=== PATIENT | female | born 1990 | race Caucasian/White ===

== ENCOUNTER 2017-02-08 13:43 | Outpatient (CLI) | payer MEDICAID ==
[~2017-02-08] VITALS: Ht 149.9 cm; Wt 64.1 kg
[2017-02-08 14:12] VITALS: Ht 149.9 cm; Wt 64.1 kg
[2017-02-08 14:13] VITALS: BP 111/76; PULSE 95; RESP 18
[2017-02-08] MEDS ORDERED: PRENAT PO (14:15)
[2017-02-08] MEDS ORDERED: TERBUTALINE 1 MG/ML INJ SC ONE ×2 (14:30→15:30)
[2017-02-08] MEDS ORDERED: LACTATED RINGER'S 1,000 ML IV SCH (14:30)
[2017-02-08 14:57] LABS: ADD UMIC YES; UR ASCORBIC ACID NEGATIVE (NEGATIVE); UR BACTERIA FEW /HPF (NONE SEEN); UR BILIRUBIN (Dip) NEGATIVE (NEGATIVE); UR BLOOD (Dip) NEGATIVE (NEGATIVE); UR CLARITY SLIGHTLY CLOUDY (CLEAR); UR COLOR YELLOW (YELLOW); UR GLUCOSE (Dip) NEGATIVE (NEGATIVE); UR KETONES (Dip) NEGATIVE (NEGATIVE); UR LEUKOCYTE ESTERASE (Dip) 1+ Leu/ul (NEGATIVE); UR MUCUS FEW /HPF (NONE SEEN); UR NITRITE (Dip) NEGATIVE (NEGATIVE); UR RBC 0 /HPF (0-5); UR SPECIFIC GRAVITY (Dip) 1.016 (1.003-1.030); UR SQUAMOUS EPITHELIAL CELL FEW /HPF (FEW); UR TOTAL PROTEIN (Dip) NEGATIVE (NEGATIVE); UR UROBILINOGEN (Dip) NEGATIVE (NEGATIVE)
--- NOTE | 2017-02-08 15:01 | RADRPT ---
PROCEDURE: US OB biophysical profile. CLINICAL INDICATION: decreased movements, prom TECHNIQUE: Multiple sonographic images of the pelvis were obtained. The images were reviewed on a PACS workstation. COMPARISON: No prior studies are available for comparison. FINDINGS: There is a single viable intrauterine gestation. Cardiac activity is present with 156 beats per min [place]. There is a vertex presentation. The placenta is posterior. There is no evidence of placental abruption. There is a normal amount of amniotic fluid with an MADI = 18.1 cm. Biophysical profile: movement 2/2 tone 2/2. breathing 2/2 MADI 2/2 Total 12/28 RPTAT: AA . IMPRESSION: Normal biophysical profile. . .James Byrd MD, MD Date Time Electronically viewed and signed by .James Byrd MD, MD on 02/08/2017 15:01 .S/
--- NOTE | 2017-02-08 16:40 | RADRPT ---
PROCEDURE: Limited obstetric ultrasound CLINICAL INDICATION: Pain , labor TECHNIQUE: Multiple transverse and longitudinal grayscale images of the pelvis were obtained quiroz sabdominally and transvaginally.. COMPARISON: 02/08/2017 FINDINGS: The cervix is closed with a length of 4.3 cm. There is a single viable intrauterine gestation. Cardiac activity is present with 165 beats per min [place]. There is a vertex presentation. The placenta is posterior. There is no evidence for an abruption or placenta previa. RPTAT: AA IMPRESSION: Cervix length measures 4.3 cm. .James Byrd MD, MD Date Time Electronically viewed and signed by .James Byrd MD, on 02/08/2017 16:40 .S/
--- NOTE | 2017-02-08 16:45 | PN ---
Triage Information Date/Time Reason for visit: Uterine contractions Weeks of Gestation 29+ /Para 1/0 Diabetes: none Hypertention: none Objective Vital Signs Date Time Temp Pulse Resp B/P Pulse Ox O2 Delivery O2 Flow Rate FiO2 02/08/17 14:13 98.1 95 18 111/76 Heart Rate: 140's Contractions: None Results/Medications Results 24 hrs Laboratory Tests Test 02/08/17 14:05 02/08/17 14:20 Urine Color YELLOW Urine Clarity SLIGHTLY CLOUDY A Urine pH 7.0 Urine Specific [place] 1.016 Urine Ketones NEGATIVE Urine Nitrite NEGATIVE Urine Bilirubin NEGATIVE Urine Urobilinogen NEGATIVE Urine Leukocyte Esterase 1+ H Urine Microscopic RBC 0 Urine Microscopic WBC 1 Urine Squamous Epithelial Cells FEW Urine Bacteria FEW A Urine Mucus FEW A Urine Hemoglobin NEGATIVE Urine Glucose NEGATIVE Urine Total Protein NEGATIVE Membranes Rupture NEGATIVE Medications Current Medications Lactated Ringer's (Lr) 1,000 ml @ 125 mls/hr Q8H IV Last administered on t 14:34; Admin Dose 125 MLS/HR; Start 02/08/17 at 14:30 Disposition: Discharge Assessment/Plan CXL WNLBPP 12/28 ROM +-->MARCELLUS Jaramillo M.D. Feb 08, 2017 16:45
== END 2017-02-08 16:45 | disposition home or self-care (01) ==
LOC: L-D 13:43 → OBT 13:43
PROVIDERS: ATTEND Obstetrics & Gynecology
DX: O47.03 False labor before 37 completed weeks of gestation, third trimester (principal); Z3A.29 29 weeks gestation of pregnancy
CPT/HCPCS: 36415; 76817; 76818; 81001; 84112; 96360; 96361; G0463; J3105; J7120

== ENCOUNTER 2017-03-03 18:30 | Outpatient (CLI) | payer MEDICAID ==
[~2017-03-03] VITALS: Ht 149.9 cm; Wt 66.1 kg
[~2017-03-03 18:30] MED LIST: PRENAT PO
[2017-03-03 18:35] VITALS: Ht 149.9 cm; Wt 66.1 kg
[2017-03-03 18:36] VITALS: BP 114/75; PULSE 89; RESP 20
[2017-03-03 19:45] LABS: ADD UMIC YES; UR ASCORBIC ACID NEGATIVE (NEGATIVE); UR BACTERIA FEW /HPF (NONE SEEN); UR BILIRUBIN (Dip) NEGATIVE (NEGATIVE); UR BLOOD (Dip) NEGATIVE (NEGATIVE); UR CLARITY SLIGHTLY CLOUDY (CLEAR); UR COLOR YELLOW (YELLOW); UR GLUCOSE (Dip) NEGATIVE (NEGATIVE); UR KETONES (Dip) NEGATIVE (NEGATIVE); UR LEUKOCYTE ESTERASE (Dip) 2+ Leu/ul (NEGATIVE); UR NITRITE (Dip) NEGATIVE (NEGATIVE); UR RBC 1 /HPF (0-5); UR SPECIFIC GRAVITY (Dip) 1.012 (1.003-1.030); UR SQUAMOUS EPITHELIAL CELL MANY /HPF (FEW); UR TOTAL PROTEIN (Dip) NEGATIVE (NEGATIVE); UR UROBILINOGEN (Dip) NEGATIVE (NEGATIVE)
[2017-03-03 20:08] LABS: BASOPHIL # 0.1 10^3/ul (0.0-0.1); BASOPHILS % 0.4 % (0.0-2.0); EOSINOPHILS # 0.1 10^3/ul (0.0-0.5); EOSINOPHILS % 0.5 % (0.0-7.0); HEMATOCRIT 36.8 % (37.0-47.0); HEMOGLOBIN 12.7 g/dl (12.0-16.0); LYMPHOCYTES # 2.4 10^3/ul (0.8-2.9); LYMPHOCYTES % 18.1 % (15.0-51.0); MEAN CORPUSCULAR HEMOGLOBIN 31.5 pg (29.0-33.0); MEAN CORPUSCULAR HGB CONC 34.5 g/dl (32.0-37.0); MEAN CORPUSCULAR VOLUME 91.3 fl (82.0-101.0); MONOCYTE # 1.2 10^3/ul (0.3-0.9); MONOCYTES % 8.7 % (0.0-11.0); NEUTROPHIL # 9.4 10^3/ul (1.6-7.5); NEUTROPHILS % 71.1 % (39.0-77.0); PLATELET COUNT 185 10^3/UL (140-415); RED BLOOD COUNT 4.03 10^6/ul (4.20-5.40); RED CELL DISTRIBUTION WIDTH 13.3 % (11.5-14.5); WHITE BLOOD COUNT 13.3 10^3/ul (4.8-10.8)
--- NOTE | 2017-03-03 20:18 | RADRPT ---
PROCEDURE: US OB. CLINICAL INDICATION: Abdominal pain. TECHNIQUE: Multiple sonographic images of the uterus were obtained. The images were revi ewed on a PACS workstation. COMPARISON: No prior studies are available for comparison. FINDINGS: There is a single live intrauterine gestation. heart rate is 139 beats per minute. Measurements were made in order to determine age. The results are as follows: BPD = 8.12 cm. HC = 29.87 cm. AC = 29.17 cm. FL = 6.36 cm. Estimated weight is 2102 +/- 315 grams. LMP growth percentile is 46 %. Menstrual age by ultrasound dates is 33 weeks 0 days. The estimated date of delivery is 04/21/2017. Position is cephalic and placenta is posterior grade 1. There is no evidence for an abruption or [place] previa. IMPRESSION: 1. Single live intrauterine gestation of 33 weeks 0 days menstrual age by ultrasound dates. 2. The estimated date of delivery is 04/21/2017. RPTAT: QQ .Jose Rafael Ash MD, Date Time Electronically viewed and signed by .Jose Rafael Ash MD, on 03/03/2017 20:17 .R/
--- NOTE | 2017-03-03 20:19 | RADRPT ---
PROCEDURE: US biophysical profile and cervical length ultrasound. CLINICAL INDICATION: Decreased motion. TECHNIQUE: Multiple sonographic images of the uterus were obtained. Transvaginal sonogra phy of the cervix was also performed. The images were reviewed on a PACS workstation. COMPARISON: 02/08/2017. FINDINGS: There is a single live intrauterine gestation. heart rate is 136 beats per minute. The position is cephalic. The placenta is posterior grade 1 with no abruption or previa. The MADI is 14.8 cm. (Normal = 5-20 cm.) Cervical length is 3.8 cm Breathing Movement: 2 Gross Body Movement: 2 Tone: 2 Qualitative Amniotic Fluid Volume: 2 TOTAL: 8 IMPRESSION: 1. The biophysical score is 8/8. 2. Cervical length is 3.8 cm. RPTAT: QQ .Jose Rafael Ash MD, Date Time Electronically viewed and signed by .Jose Rafael Ash MD, on 03/03/2017 20:18 .R/
[2017-03-03] MEDS ORDERED: LACTATED RINGER'S 500 ML IV ONE (21:00)
[2017-03-03] MEDS ORDERED: LACTATED RINGER'S 1,000 ML IV SCH (21:00)
--- NOTE | 2017-03-04 00:10 | PN ---
Triage Information Date/Time 03/04/17 Reason for visit: Uterine contractions Weeks of Gestation 32w6d /Para primigravida Diabetes: none Hypertention: none Objective Vital Signs Date Time Temp Pulse Resp B/P Pulse Ox O2 Delivery O2 Flow Rate FiO2 03/03/17 18:36 98.1 89 20 114/75 Room Air Intake and Output 03/03/17 03/03/17 03/04/17 15:00 23:00 07:00 Intake Total 1000 ml Balance 1000 ml Heart Rate: 140's Contractions: >10 Minutes Apart Results/Medications Result Diagram: 03/03/172004 Results 24 hrs Laboratory Tests Test 03/03/17 18:40 03/03/17 20:05 Urine Color YELLOW Urine Clarity SLIGHTLY CLOUDY A Urine pH 7.0 Urine Specific [place] 1.012 Urine Ketones NEGATIVE Urine Nitrite NEGATIVE Urine Bilirubin NEGATIVE Urine Urobilinogen NEGATIVE Urine Leukocyte Esterase 2+ H Urine Microscopic RBC 1 Urine Microscopic WBC 5 Urine Squamous Epithelial Cells MANY A Urine Bacteria FEW A Urine Hemoglobin NEGATIVE Urine Glucose NEGATIVE Urine Total Protein NEGATIVE White Blood Count 13.3 H Red Blood Count 4.03 L Hemoglobin 12.7 Hematocrit 36.8 L Mean Corpuscular Volume 91.3 Mean Corpuscular Hemoglobin 31.5 Mean Corpuscular Hemoglobin Concent 34.5 Red Cell Distribution Width 13.3 Platelet Count 185 Mean Platelet Volume 12.0 H Neutrophils % 71.1 Lymphocytes % 18.1 Monocytes % 8.7 Eosinophils % 0.5 Basophils % 0.4 Nucleated Red Blood Cells % 0.0 Neutrophils # 9.4 H Lymphocytes # 2.4 Monocytes # 1.2 H Eosinophils # 0.1 Basophils # 0.1 Nucleated Red Blood Cells # 0.0 Medications IV hydration Imaging Results BPP8/8 MADI 14.8 CVL 3.8 no FNN since CVL >3 EFW 2102 Disposition: Discharge Assessment/Plan IUP 32w6d R/O PTL resolved after iv hydration BROOKE MARTINEZ MD Mar 04, 2017 00:09
== END 2017-03-03 23:35 | disposition home or self-care (01) ==
LOC: OBT 18:30 → L-D 18:31 → OBT 23:35
PROVIDERS: ATTEND Obstetrics & Gynecology
DX: O62.9 Abnormality of forces of labor, unspecified (principal); Z3A.32 32 weeks gestation of pregnancy
CPT/HCPCS: 36415; 76815; 76817; 76818; 81001; 85025; 87086; 96360; J7120; Z7500; G0463

== ENCOUNTER 2017-03-08 12:27 | Outpatient (CLI) | payer MEDICAID ==
[~2017-03-08] VITALS: Ht 149.9 cm; Wt 66.3 kg
[2017-03-08 13:06] VITALS: BP 108/65; PULSE 92; RESP 18; Ht 149.9 cm; Wt 66.3 kg
[2017-03-08] MEDS ORDERED: LACTATED RINGER'S 1,000 ML IV* SCH (14:00)
[2017-03-08] MEDS ORDERED: TERBUTALINE 1 MG/ML INJ SC ONE (14:00)
[2017-03-08] MEDS ORDERED: TERBUTALINE 1 MG/ML INJ SC PRN (14:30)
--- NOTE | 2017-03-08 14:39 | RADRPT ---
PROCEDURE: US OB biophysical profile. CLINICAL INDICATION: decreased movements, contractions TECHNIQUE: Multiple sonographic images of the pelvis were obtained. The images were reviewed on a PACS workstation. COMPARISON: US PELVIS 03/03/2017 FINDINGS: There is a single viable intrauterine gestation. Cardiac activity is present with 148 beats per min [place]. There is a vertex presentation. The placenta is posterior. There is no evidence of placental abruption. There is a normal amount of amniotic fluid with an MADI = 14.1 cm. Biophysical profile: movement 2/2 tone 2/2. breathing 2/2 MADI 2/2 Total 12/28 RPTAT: AA . IMPRESSION: Normal biophysical profile. . .James Byrd MD, MD Date Time Electronically viewed and signed by .James Byrd MD, MD on 03/08/2017 14:38 .S/
--- NOTE | 2017-03-08 14:39 | RADRPT ---
PROCEDURE: Limited obstetric ultrasound CLINICAL INDICATION: Pain TECHNIQUE: Multiple transverse and longitudinal grayscale images of the pelvis were obtained quiroz sabdominally and transvaginally.. COMPARISON: same day FINDINGS: The cervix is closed with a length of 3.2 cm. There is a single viable intrauterine gestation. Cardiac activity is present with 142 beats per min [place]. There is a vertex presentation. The placenta is posterior. There is no evidence for an abruption or placenta previa. RPTAT: AA IMPRESSION: Cervix length measures 3.2 cm. .James Byrd MD, MD Date Time Electronically viewed and signed by .James Byrd MD, on 03/08/2017 14:39 .S/
[2017-03-08 16:48] LABS: ADD UMIC NO; UR ASCORBIC ACID NEGATIVE (NEGATIVE); UR BILIRUBIN (Dip) NEGATIVE (NEGATIVE); UR BLOOD (Dip) NEGATIVE (NEGATIVE); UR CLARITY CLEAR (CLEAR); UR COLOR YELLOW (YELLOW); UR GLUCOSE (Dip) NEGATIVE (NEGATIVE); UR KETONES (Dip) NEGATIVE (NEGATIVE); UR LEUKOCYTE ESTERASE (Dip) NEGATIVE Leu/ul (NEGATIVE); UR NITRITE (Dip) NEGATIVE (NEGATIVE); UR SPECIFIC GRAVITY (Dip) 1.009 (1.003-1.030); UR TOTAL PROTEIN (Dip) NEGATIVE (NEGATIVE); UR UROBILINOGEN (Dip) NEGATIVE (NEGATIVE)
[2017-03-08] MEDS ORDERED: BETAMET NA PHOS/AC(6 MG/ML) 5ML INJ IM STA (17:03)
--- NOTE | 2017-03-08 17:40 | PN ---
Triage Information Date/Time Reason for visit: Uterine contractions Weeks of Gestation 33+ /Para ... Diabetes: none Hypertention: none Objective Vital Signs Date Time Temp Pulse Resp B/P Pulse Ox O2 Delivery O2 Flow Rate FiO2 03/08/17 13:06 98.3 92 18 108/65 Room Air Heart Rate: 140's Contractions: None Results/Medications Results 24 hrs Laboratory Tests Test 03/08/17 12:25 03/08/17 14:01 Urine Color YELLOW Urine Clarity CLEAR Urine pH 7.0 Urine Specific [place] 1.009 Urine Ketones NEGATIVE Urine Nitrite NEGATIVE Urine Bilirubin NEGATIVE Urine Urobilinogen NEGATIVE Urine Leukocyte Esterase NEGATIVE Urine Hemoglobin NEGATIVE Urine Glucose NEGATIVE Urine Total Protein NEGATIVE Fibronectin NEGATIVE Medications Current Medications Lactated Ringer's (Lr) 1,000 ml @ 0 mls/hr Q0M IV* Last administered on 14:54; Admin Dose 1,200 MLS/HR; Start 03/08/17 at 14:00 Terbutaline Sulfate (Brethine) 0.25 mg ONCE PRN SC CONTINUED CONTRACTIONS Last administered on 03/08/17 17:15; Admin Dose 0.25 MG; Start 03/08/17 at 14:30; Stop 03/10/17 at 14:29 Betamethasone Acet/Betameth SodPhos ([place] Soluspan) 12 mg ONCE ONCE IM ; Start 03/09/17 at 17:00; Stop 03/09/17 at 17:01 Disposition: Discharge Assessment/Plan Irritability Norm CXL Neg FFN NST reassuring --->can be discharged after receiving steroid --->return tomorrow for second dose MARCELLUS RUIZ M.D. Mar 08, 2017 17:40
--- NOTE | 2017-03-08 19:25 | TRIAGE ---
OB Triage Datetime Report Generated by CPN: 03/08/2017 19:25 Datetime: 03/08/2017 18:43 Labor Evaluation Frequency: 0 Monitor Mode: External Pattern: Normal: <= 5 Contractions in 10 Minutes Resting Tone [place]: Relaxed Heart Rate FHR Baseline Rate: 145 Monitor Mode: External US FHR Baseline Changes: No Baseline Change Variability: Moderate 6-25 bpm Accelerations: 15X15 Decelerations: None Datetime: 03/08/2017 18:00 Maternal Assessment Level of Consciousness: Fully Conscious Headache: Denies Blurred Vision: No Nausea/Vomiting: Denies RUQ Epigastric Pain: Denies Facial Edema: None Labor Evaluation Frequency: x1 Monitor Mode: External Duration (sec)2399: 60 Quality: Mild Pattern: Normal: <= 5 Contractions in 10 Minutes Resting Tone [place]: Relaxed Heart Rate FHR Baseline Rate: 145 Monitor Mode: External US FHR Baseline Changes: No Baseline Change Variability: Moderate 6-25 bpm Accelerations: 15X15 Decelerations: None Pain Assessment Pain Scale: 0 Pain Presence: None/Denies Pain Type: N/A Datetime: 03/08/2017 17:00 Maternal Assessment Level of Consciousness: Fully Conscious Headache: Denies Blurred Vision: No Nausea/Vomiting: Denies RUQ Epigastric Pain: Denies Facial Edema: None Labor Evaluation Frequency: x2 Monitor Mode: External Duration (sec)2399: 60-70 Quality: Mild Pattern: Normal: <= 5 Contractions in 10 Minutes Resting Tone [place]: Relaxed Heart Rate FHR Baseline Rate: 145 Monitor Mode: External US FHR Baseline Changes: No Baseline Change Variability: Moderate 6-25 bpm Accelerations: 15X15 Decelerations: None Pain Assessment Pain Scale: 0 Pain Presence: None/Denies Pain Type: N/A Datetime: 03/08/2017 16:47 Contraction Comments: PT REPORTS THAT SHE HASN'T FELT ANY CONTRACTIONS SINCE PRIOR TO THE TERBUTAL INE SHOT Pain Assessment Pain Scale: 0 Pain Presence: None/Denies Pain Type: N/A Datetime: 03/08/2017 16:00 Labor Evaluation Frequency: 10-15 Monitor Mode: External Duration (sec)2399: 50-60 Quality: Mild Pattern: Normal: <= 5 Contractions in 10 Minutes Resting Tone [place]: Relaxed Heart Rate FHR Baseline Rate: 145 Monitor Mode: External US FHR Baseline Changes: No Baseline Change Variability: Moderate 6-25 bpm Accelerations: 15X15 Decelerations: None Pain Assessment Pain Scale: 2 Pain Presence: Intermittent Pain Type: Contraction Pain Location: Abdomen; Back; Perineum Datetime: 03/08/2017 15:13 Vaginal Exam Dilatation (cms): 0.0 Effacement (%): 0 Station: -4 Exam By: CKUNIYOSHI Vaginal Bleeding: None Cervix, Consistency: Firm Cervix, Position: Posterior Presentation 'A': Unable to Assess Datetime: 03/08/2017 15:00 Labor Evaluation Frequency: 3-10 Monitor Mode: External Duration (sec)2399: 50-90 Quality: Mild Pattern: Normal: <= 5 Contractions in 10 Minutes Resting Tone [place]: Relaxed Heart Rate FHR Baseline Rate: 140 Monitor Mode: External US FHR Baseline Changes: No Baseline Change Variability: Moderate 6-25 bpm Accelerations: 15X15 Decelerations: None Datetime: 03/08/2017 14:00 Maternal Assessment Level of Consciousness: Fully Conscious Headache: Denies Blurred Vision: No Nausea/Vomiting: Denies RUQ Epigastric Pain: Denies Facial Edema: None Labor Evaluation Frequency: 3-20 Monitor Mode: External Quality: Mild Pattern: Normal: <= 5 Contractions in 10 Minutes Resting Tone [place]: Relaxed Heart Rate FHR Baseline Rate: 140 Monitor Mode: External US FHR Baseline Changes: No Baseline Change Variability: Moderate 6-25 bpm Accelerations: 15X15 Decelerations: None Pain Assessment Pain Scale: 4 Pain Presence: Intermittent Pain Type: Contraction Pain Location: Abdomen; Back; Perineum Datetime: 03/08/2017 13:11 Assessment Type: Admission Assessment Maternal Assessment Level of Consciousness: Fully Conscious DTR's/Clonus: DTRs 2+; No Clonus Headache: Denies Blurred Vision: No Respiratory Effort: Unlabored; Regular Rhythm; Equal Expansion Breath Sounds, Left: Clear and Equal Breath Sounds, Right: Clear and Equal Nausea/Vomiting: Denies RUQ Epigastric Pain: Denies Lower Extremities Edema: None Degree: None Upper Extremities Edema: None Degree: None Facial Edema: None Fall Risk Assessment History of Falling: (0) No Secondary Diagnosis: (0) No Ambulatory Aid: (0) Bedrest/Nurse Assist IV Therapy: (0) No Gait: (0) Normal/Bedrest/Immobile Mental Status: (0) Oriented to Own Ability Fall Score: 0 Fall Risk Score Definition: No Risk: No action required Datetime: 03/08/2017 13:10 Time of Arrival: 03/08/2017 12:22 EGA: 33.4 Arrived By: Ambulatory Arrived From: Dr. Benítez Chief Complaint: Uc's since 03/07 2000 Movement: Present Contractions: Occasional Time Contractions Began: 03/07/2017 20:00 Rupture of Membranes: Denies Vaginal Bleeding: None Vaginal Discharge: Denies Recent Sexual Intercouse: Denies Abdominal Trauma: Not Applicable Patient Complaints: Contractions; Cramping Time Provider Notified: 03/08/2017 13:47 Provider Notified: DR. SORTO Initial Plan: NST Datetime: 03/03/2017 23:00 Labor Evaluation Frequency: 13 Monitor Mode: External Duration (sec)2399: 60 Pattern: Normal: <= 5 Contractions in 10 Minutes Contraction Comments: IRREGULAR Heart Rate FHR Baseline Rate: 135 Monitor Mode: External US FHR Baseline Changes: No Baseline Change Variability: Moderate 6-25 bpm Accelerations: 15X15 Datetime: 03/03/2017 22:31 Stage of : OB Triage Datetime: 03/03/2017 22:30 Labor Evaluation Frequency: NONE Monitor Mode: External Duration (sec)2399: NONE Pattern: Normal: <= 5 Contractions in 10 Minutes Contraction Comments: PT. DENIES FEELING UC'S Heart Rate FHR Baseline Rate: 135 Monitor Mode: External US FHR Baseline Changes: No Baseline Change Variability: Moderate 6-25 bpm Accelerations: 15X15 Datetime: 03/03/2017 22:00 Labor Evaluation Frequency: 2-6 Monitor Mode: External Pattern: Normal: <= 5 Contractions in 10 Minutes Contraction Comments: OCCASSIONAL IRREGULAR UC'S Heart Rate FHR Baseline Rate: 135 Monitor Mode: External US FHR Baseline Changes: No Baseline Change Variability: Moderate 6-25 bpm Accelerations: 15X15 Datetime: 03/03/2017 20:37 Stage of : OB Triage Datetime: 03/03/2017 20:31 Stage of : OB Triage Labor Evaluation Frequency: 3-5 Monitor Mode: External Duration (sec)2399: 50-70 Pattern: Normal: <= 5 Contractions in 10 Minutes Resting Tone [place]: Relaxed Heart Rate FHR Baseline Rate: 130 Monitor Mode: External US Variability: Moderate 6-25 bpm Accelerations: 15X15 Decelerations: None Category: Category I Pain Assessment Pain Scale: 3 Pain Presence: Intermittent Pain Type: Sharp Pain Location: Abdomen; Perineum Pain Relief Measures: Comfort Measures Datetime: 03/03/2017 19:25 Stage of : OB Triage Labor Evaluation Frequency: Occasional Monitor Mode: External Duration (sec)2399: 50-60 Pattern: Normal: <= 5 Contractions in 10 Minutes Resting Tone [place]: Relaxed Heart Rate FHR Baseline Rate: 135 Monitor Mode: External US Variability: Moderate 6-25 bpm Accelerations: 15X15 Decelerations: None Category: Category I Pain Assessment Pain Scale: 3 Pain Presence: Intermittent Pain Type: Sharp Pain Location: Abdomen; Perineum Pain Relief Measures: Comfort Measures Datetime: 03/03/2017 18:40 Stage of : OB Triage Assessment Type: Triage Maternal Assessment Level of Consciousness: Fully Conscious DTR's/Clonus: DTRs 2+; No Clonus Headache: Denies Blurred Vision: No Respiratory Effort: Unlabored; Regular Rhythm; Equal Expansion Nausea/Vomiting: Denies RUQ Epigastric Pain: Denies Lower Extremities Edema: None Degree: None Upper Extremities Edema: None Degree: None Facial Edema: None Temperature Route: Axillary Fall Risk Assessment History of Falling: (0) No Secondary Diagnosis: (0) No Ambulatory Aid: (0) Bedrest/Nurse Assist IV Therapy: (0) No Gait: (0) Normal/Bedrest/Immobile Mental Status: (0) Oriented to Own Ability Fall Score: 0 Fall Risk Score Definition: No Risk: No action required Datetime: 03/03/2017 18:38 Monitor Mode: External Monitor Mode: External US Pain Assessment Pain Scale: 3 Pain Presence: Intermittent Pain Type: Sharp Pain Location: Abdomen; Perineum Pain Goal: 0 Datetime: 02/08/2017 16:55 Time of Arrival: 03/03/2017 18:24 EGA: 32.6 Arrived By: Ambulatory Arrived From: Home Chief Complaint: SHARP PAIN AT LOWER ABDOMEN DOWN TO URETHRA SINCE 1320 TODAY. ALSO C/O DIZZYNESS AND LIGHT HEADED FOR A WEEK. Movement: Present Contractions: Occasional Time Contractions Began: 03/03/2017 13:20 Rupture of Membranes: Denies Vaginal Bleeding: None Vaginal Discharge: Denies Recent Sexual Intercouse: Denies Abdominal Trauma: Not Applicable Patient Complaints: Other Time Provider Notified: 03/03/2017 19:30 Provider Notified: MICHELLE Initial Plan: EFM, UA Datetime: 02/08/2017 16:34 Stage of : OB Triage Datetime: 02/08/2017 16:30 Labor Evaluation Frequency: 0 Monitor Mode: External Resting Tone [place]: Relaxed Heart Rate FHR Baseline Rate: 155 Monitor Mode: External US Variability: Moderate 6-25 bpm Accelerations: 10X10 Decelerations: None Category: Category I Pain Assessment Pain Scale: 0 Pain Presence: None/Denies Pain Type: N/A Pain Goal: 3 Pain Relief Measures: Comfort Measures Datetime: 02/08/2017 15:06 Labor Evaluation Frequency: 0 Monitor Mode: External Pattern: Normal: <= 5 Contractions in 10 Minutes Resting Tone [place]: Relaxed Heart Rate FHR Baseline Rate: 145 Monitor Mode: External US Variability: Moderate 6-25 bpm Accelerations: 10X10 Decelerations: None Category: Category I Pain Assessment Pain Scale: 0 Pain Presence: None/Denies Pain Type: N/A Pain Goal: 3 Pain Relief Measures: Comfort Measures Datetime: 02/08/2017 14:19 Stage of : OB Triage Datetime: 02/08/2017 14:03 Stage of : OB Triage Assessment Type: Triage EGA: 29.4 Maternal Assessment Level of Consciousness: Fully Conscious DTR's/Clonus: DTRs 2+; No Clonus Headache: Denies Blurred Vision: No Respiratory Effort: Unlabored; Regular Rhythm; Equal Expansion Breath Sounds, Left: Clear and Equal Breath Sounds, Right: Clear and Equal Nausea/Vomiting: Denies RUQ Epigastric Pain: Denies Facial Edema: None Temperature Route: Axillary Fall Risk Assessment History of Falling: (0) No Secondary Diagnosis: (0) No Ambulatory Aid: (0) Bedrest/Nurse Assist IV Therapy: (0) No Gait: (0) Normal/Bedrest/Immobile Mental Status: (0) Oriented to Own Ability Fall Score: 0 Fall Risk Score Definition: No Risk: No action required Labor Evaluation Frequency: 1-3 Monitor Mode: External Duration (sec)2399: 30 Quality: Mild (Annotations: DENIES FEELING) Resting Tone [place]: Relaxed Heart Rate FHR Baseline Rate: 140 Monitor Mode: External US Variability: Moderate 6-25 bpm Decelerations: None Pain Assessment Pain Scale: 4 Pain Presence: Intermittent Pain Type: Cramping Pain Location: Back Pain Goal: 3 Pain Relief Measures: Comfort Measures Datetime: 02/08/2017 14:01 Time of Arrival: 02/08/2017 13:40 Arrived By: Ambulatory Arrived From: Dr. Benítez Chief Complaint: SENT IN FROM OFFICE TO R/O PROM, DENIES BLEEDING, STATES BACK PAIN, DENIES UC'S Movement: Present Contractions: Denies/Absent Rupture of Membranes: Unsure Vaginal Bleeding: None Vaginal Discharge: Present Recent Sexual Intercouse: Denies Abdominal Trauma: Not Applicable Patient Complaints: Back Pain Time Provider Notified: 02/08/2017 14:19 Provider Notified: sina Initial Plan: MONITOR, BPP/MADI, ROM PLUS, iv hydration, terb, nitrazine, u/a
[2017-03-09] MEDS ORDERED: BETAMET NA PHOS/AC(6 MG/ML) 5ML INJ IM ONE (17:00)
== END 2017-03-08 19:27 | disposition home or self-care (01) ==
LOC: OBT 12:27 → L-D 12:28 → OBT 19:27
PROVIDERS: ATTEND Obstetrics & Gynecology
DX: O62.9 Abnormality of forces of labor, unspecified (principal); Z3A.33 33 weeks gestation of pregnancy
CPT/HCPCS: 76817; 76818; 81003; 82731; 87086; 96360; 96372; J0702; J3105; Z7500; G0463

== ENCOUNTER 2017-03-09 17:02 | Outpatient (CLI) | payer MEDICAID ==
[~2017-03-09] VITALS: Ht 149.9 cm; Wt 68.9 kg
[2017-03-09 17:14] VITALS: Ht 149.9 cm; Wt 68.9 kg
[2017-03-09 17:15] VITALS: BP 110/72; PULSE 112; RESP 18
[2017-03-09] MEDS ORDERED: BETAMET NA PHOS/AC(6 MG/ML) 5ML INJ IM ONE (17:30)
--- NOTE | 2017-03-09 17:41 | TRIAGE ---
OB Triage Datetime Report Generated by CPN: 03/09/2017 17:41 Datetime: 03/09/2017 17:33 Stage of : OB Triage Level of Consciousness: Fully Conscious Frequency: OCCASIONAL Monitor Mode: External Duration (sec)2399: 60-110 Quality: Mild Resting Tone [place]: Relaxed FHR Baseline Rate: 120 Monitor Mode: External US Variability: Moderate 6-25 bpm Accelerations: 15X15 Decelerations: None Category: Category I Pain Scale: 0 Pain Goal: 3 Membrane Status: Intact Vaginal Bleeding: None Datetime: 03/09/2017 17:08 Monitor Mode: External Monitor Mode: External US Datetime: 03/09/2017 17:06 Assessment Type: Triage Level of Consciousness: Fully Conscious DTR's/Clonus: DTRs 2+; No Clonus Headache: Denies Blurred Vision: No Respiratory Effort: Unlabored; Regular Rhythm; Equal Expansion Breath Sounds, Left: Clear and Equal Breath Sounds, Right: Clear and Equal Nausea/Vomiting: Denies RUQ Epigastric Pain: Denies Lower Extremities Edema: None Degree: None Upper Extremities Edema: None Degree: None Facial Edema: None History of Falling: (0) No Secondary Diagnosis: (0) No Ambulatory Aid: (0) Bedrest/Nurse Assist IV Therapy: (0) No Gait: (0) Normal/Bedrest/Immobile Mental Status: (0) Oriented to Own Ability Fall Score: 0 Fall Risk Score Definition: No Risk: No action required Datetime: 03/09/2017 17:05 Time of Arrival: 03/09/2017 16:56 EGA: 33.5 Arrived By: Ambulatory Arrived From: Home Chief Complaint: PT HERE FOR SECOND DOSE OF BETAMETHASONE Movement: Present Contractions: Denies/Absent Rupture of Membranes: Denies Vaginal Bleeding: None Vaginal Discharge: Denies Recent Sexual Intercouse: Denies Abdominal Trauma: Not Applicable Patient Complaints: None Time Provider Notified: 03/09/2017 14:22 Provider Notified: NOREEN Initial Plan: CHRISTIANOT/BETA
--- NOTE | 2017-03-09 17:50 | PN ---
Triage Information Date/Time March 09, 2017 Reason for visit: Weeks of Gestation 33 weeks and 5 days /Para Diabetes: none Hypertention: none Additional information 26 years old with IUP at 33 weeks and 5 days with contractions , received one dose of Steroid x 1 yesterday, here today here to receive second dose of steroid. Denies any complaint, Denies any LOF, vaginal bleeding or decreased movement. Objective Vital Signs Date Time Temp Pulse Resp B/P Pulse Ox O2 Delivery O2 Flow Rate FiO2 03/09/17 17:15 98.4 112 18 110/72 97 Room Air Heart Rate: 130's Contractions: >10 Minutes Apart Exam GA" A&O, NAD Abdomen: no tenderness, no rebound tenderness, Gravid, Fundal Height consistent with date. NST: Cat 1 Extremities: No calf tenderness, no cord palpable. Results/Medications Imaging Results PROCEDURE: US OB biophysical profile. CLINICAL INDICATION: decreased movements, contractions TECHNIQUE: Multiple sonographic images of the pelvis were obtained. The images were reviewed on a PACS workstation. COMPARISON: US PELVIS 03/03/2017 FINDINGS: There is a single viable intrauterine gestation. Cardiac activity is present with 148 beats per minute. There is a vertex presentation. The placenta is posterior. There is no evidence of placental abruption. There is a normal amount of amniotic fluid with an MADI = 14.1 cm. Biophysical profile: movement 2/2 tone 2/2. breathing 2/2 MADI 2/2 Total 12/28 RPTAT: AA . IMPRESSION: Normal biophysical profile. . PROCEDURE: Limited obstetric ultrasound CLINICAL INDICATION: Pain TECHNIQUE: Multiple transverse and longitudinal grayscale images of the pelvis were obtained transabdominally and transvaginally.. COMPARISON: same day FINDINGS: The cervix is closed with a length of 3.2 cm. There is a single viable intrauterine gestation. Cardiac activity is present with 142 beats per minute. There is a vertex presentation. The placenta is posterior. There is no evidence for an abruption or placenta previa. RPTAT: AA IMPRESSION: Cervix length measures 3.2 cm. Disposition: Discharge Assessment/Plan IUP at 33 weeks and 5 days History of labor, s/p Steriod x 2 doses No evidence of PPROM, no evidence of PTL NST: Cat 1 MADI: 14.1 DC home labor precaution FKC rest at home Adequate PO Hydration Follow up with OB in the next 2-3 days. CYN PIKE MD Mar 09, 2017 17:50
== END 2017-03-09 17:45 | disposition home or self-care (01) ==
LOC: OBT 17:02 → L-D 17:03 → OBT 17:45
PROVIDERS: ATTEND Obstetrics & Gynecology
DX: O62.9 Abnormality of forces of labor, unspecified (principal); O36.8130 Decreased fetal movements, third trimester, not applicable or unspecified; Z3A.33 33 weeks gestation of pregnancy
CPT/HCPCS: J0702

== ENCOUNTER 2017-04-10 08:59 | Outpatient (CLI) | payer MEDICAID, OTHER ==
[~2017-04-10] VITALS: Ht 149.9 cm; Wt 72.0 kg
[2017-04-10 09:53] VITALS: Ht 149.9 cm; Wt 72.0 kg
--- NOTE | 2017-04-10 10:33 | RADRPT ---
PROCEDURE: US OB biophysical profile. CLINICAL INDICATION: Vaginal bleeding TECHNIQUE: Multiple sonographic images of the pelvis were obtained. The images were reviewed on a PACS workstation. COMPARISON: US PELVIS 03/08/2017 FINDINGS: There is a single live intrauterine , in cephalic presentation. A normal heart rate i s identified measuring 157 beats per minute. The amniotic fluid index is within normal limits measur ing 8.3 cm. Biophysical profile: movement 2/2 tone 2/2. breathing 2/2 MADI 2/2 Total 12/28 IMPRESSION: 1. Biophysical profile score of 8/8. 2. Single live intrauterine in cephalic presentation with normal heart rate of 157 b pm. 3. Normal amniotic fluid index of 8.3 cm. Physician Nael Date Time Electronically viewed and signed by Meeta Cerna Physician on 04/10/2017 10:33 MUSA/
--- NOTE | 2017-04-10 11:09 | TRIAGE ---
OB Triage Datetime Report Generated by CPN: 04/10/2017 11:09 Datetime: 04/10/2017 10:14 Maternal Assessment Level of Consciousness: Fully Conscious DTR's/Clonus: DTRs 2+ Headache: Denies Blurred Vision: No Nausea/Vomiting: Denies RUQ Epigastric Pain: Denies Facial Edema: None Labor Evaluation Frequency: irreg Monitor Mode: External Quality: Moderate Pattern: Normal: <= 5 Contractions in 10 Minutes Resting Tone Welda: Relaxed Heart Rate FHR Baseline Rate: 145 Monitor Mode: External US FHR Baseline Changes: No Baseline Change Variability: Moderate 6-25 bpm Accelerations: 15X15 Decelerations: Variable Category: Category I Pain Assessment Pain Scale: 2 Pain Presence: Intermittent Pain Type: Cramping Pain Location: Abdomen Pain Goal: 4 Datetime: 04/10/2017 09:57 Arrived By: Ambulatory Arrived From: Home Chief Complaint: VAG SPOTTING Movement: Decreased Contractions: Irregular Rupture of Membranes: Denies Vaginal Bleeding: None Vaginal Discharge: Denies Recent Sexual Intercouse: Denies Abdominal Trauma: Not Applicable Patient Complaints: Other Time Provider Notified: 04/10/2017 09:58 Initial Plan: EFM,CALL DR SORTO Datetime: 04/10/2017 09:29 Maternal Assessment Level of Consciousness: Fully Conscious DTR's/Clonus: DTRs 2+ Headache: Denies Blurred Vision: No Nausea/Vomiting: Denies RUQ Epigastric Pain: Denies Facial Edema: None Labor Evaluation Frequency: IRREG Monitor Mode: External Duration (sec)2399: 60 Quality: Moderate Pattern: Normal: <= 5 Contractions in 10 Minutes Resting Tone Welda: Relaxed Heart Rate FHR Baseline Rate: 140 Monitor Mode: External US FHR Baseline Changes: No Baseline Change Variability: Moderate 6-25 bpm Accelerations: 15X15 Decelerations: None Category: Category I Pain Assessment Pain Scale: 2 Pain Presence: Intermittent Pain Type: Cramping Pain Location: Abdomen Pain Goal: 4 Vaginal Exam Dilatation (cms): 0.0 Effacement (%): 0 Exam By: ELDER RN Membrane Status: Intact Cervix, Consistency: Firm Cervix, Position: Posterior Datetime: 03/09/2017 17:06 Fall Risk Assessment Fall Score: 0 Fall Risk Score Definition: No Risk: No action required Datetime: 03/09/2017 17:05 EGA: 33.5 Datetime: 03/08/2017 13:11 Fall Risk Assessment Fall Score: 0 Fall Risk Score Definition: No Risk: No action required Datetime: 03/08/2017 13:10 EGA: 33.4 Datetime: 03/03/2017 18:40 Fall Risk Assessment Fall Score: 0 Fall Risk Score Definition: No Risk: No action required Datetime: 02/08/2017 16:55 EGA: 32.6 Datetime: 02/08/2017 14:03 EGA: 29.4 Fall Risk Assessment Fall Score: 0 Fall Risk Score Definition: No Risk: No action required
--- NOTE | 2017-04-10 17:02 | QN ---
Documentation Comment iup 38 weeks co uf ucs. g1 vss exam wnl nst reactive a/p iup 38 weeks false labor dc home MIKY DUMAS MD Apr 10, 2017 17:02
== END 2017-04-10 11:00 | disposition home or self-care (01) ==
LOC: OBT 08:59 → L-D 09:03 → OBT 11:00
PROVIDERS: ATTEND Obstetrics & Gynecology
DX: O47.1 False labor at or after 37 completed weeks of gestation (principal); Z3A.38 38 weeks gestation of pregnancy
CPT/HCPCS: 76818; Z7500; G0463

== ENCOUNTER 2017-04-12 14:22 | Inpatient (IN) | payer OTHER ==
[~2017-04-12] VITALS: Ht 149.9 cm; Wt 71.3 kg
[2017-04-12 14:42] VITALS: BP 126/70; PULSE 97; RESP 18; Ht 149.9 cm; Wt 71.3 kg
--- NOTE | 2017-04-12 14:55 | TRIAGE ---
OB Triage Datetime Report Generated by CPN: 04/12/2017 14:55 Datetime: 04/12/2017 14:37 Assessment Type: Triage Maternal Assessment Level of Consciousness: Fully Conscious DTR's/Clonus: DTRs 2+; No Clonus Headache: Denies Blurred Vision: No Respiratory Effort: Unlabored; Regular Rhythm; Equal Expansion Breath Sounds, Left: Clear and Equal Breath Sounds, Right: Clear and Equal Nausea/Vomiting: Denies RUQ Epigastric Pain: Denies Lower Extremities Edema: None Degree: None Upper Extremities Edema: None Degree: None Facial Edema: None Fall Risk Assessment History of Falling: (0) No Secondary Diagnosis: (0) No Ambulatory Aid: (0) Bedrest/Nurse Assist IV Therapy: (0) No Gait: (0) Normal/Bedrest/Immobile Mental Status: (0) Oriented to Own Ability Fall Score: 0 Fall Risk Score Definition: No Risk: No action required Datetime: 04/12/2017 14:36 Time of Arrival: 04/12/2017 14:20 EGA: 38.4 Arrived By: Ambulatory Arrived From: Home Chief Complaint: pt here c/o uc's since Movement: Present Contractions: Irregular Time Contractions Began: 04/11/2017 07:00 Rupture of Membranes: Denies Vaginal Bleeding: None Vaginal Discharge: Denies Recent Sexual Intercouse: Denies Abdominal Trauma: Not Applicable Patient Complaints: Contractions; Cramping; Back Pain Time Provider Notified: 04/12/2017 14:45 Provider Notified: NOREEN Initial Plan: SVE Labor Evaluation Monitor Mode: External Heart Rate Monitor Mode: External US Datetime: 03/09/2017 17:06 Fall Score: 0 Fall Risk Score Definition: No Risk: No action required Datetime: 03/09/2017 17:05 EGA: 33.5 Datetime: 03/08/2017 13:11 Fall Score: 0 Fall Risk Score Definition: No Risk: No action required Datetime: 03/08/2017 13:10 EGA: 33.4 Datetime: 03/03/2017 18:40 Fall Score: 0 Fall Risk Score Definition: No Risk: No action required Datetime: 02/08/2017 16:55 EGA: 32.6 Datetime: 02/08/2017 14:03 EGA: 29.4 Fall Score: 0 Fall Risk Score Definition: No Risk: No action required
[2017-04-12] MEDS ORDERED: OXYTOCIN 30 UNITS/LR 500 ML IV SCH ×2 (15:00)
[2017-04-12] MEDS ORDERED: MISOPROSTOL 200 MCG TAB PR PRN (15:00)
[2017-04-12] MEDS ORDERED: LACTATED RINGER'S 1,000 ML IV PRN (15:00)
[2017-04-12] MEDS ORDERED: LIDOCAINE 1% (MPF) 30 ML INJ INJ PRN (15:00)
[2017-04-12] MEDS ORDERED: AMPICILLIN 2 GM/NS (PMX) 100 ML IV ONE (15:00)
[2017-04-12] MEDS ORDERED: OXYTOCIN 30 UNITS/LR 500 ML IV PRN (15:00)
[2017-04-12] MEDS ORDERED: BUTORPHANOL 2 MG INJ IV PRN (15:00)
[2017-04-12] MEDS ORDERED: CARBOPROST 250 MCG INJ IM PRN (15:00)
[2017-04-12] MEDS ORDERED: IBUPROFEN 600 MG TAB PO PRN (15:00)
[2017-04-12] MEDS ORDERED: METHYLERGONOVINE 0.2 MG INJ IM PRN (15:00)
[2017-04-12 16:31] LABS: ABNORMAL IP MESSAGE 1; BASOPHILS % 0.3 % (0.0-2.0); EOSINOPHILS % 0.1 % (0.0-7.0); HEMATOCRIT 39.7 % (37.0-47.0); HEMOGLOBIN 13.8 g/dl (12.0-16.0); LYMPHOCYTES # 1.5 10^3/ul (0.8-2.9); LYMPHOCYTES % 10.4 % (15.0-51.0); MEAN CORPUSCULAR HEMOGLOBIN 31.5 pg (29.0-33.0); MEAN CORPUSCULAR HGB CONC 34.8 g/dl (32.0-37.0); MEAN CORPUSCULAR VOLUME 90.6 fl (82.0-101.0); MEAN PLATELET VOLUME 13.4 fl (7.4-10.4); MONOCYTE # 0.8 10^3/ul (0.3-0.9); MONOCYTES % 5.4 % (0.0-11.0); NEUTROPHIL # 12.1 10^3/ul (1.6-7.5); NEUTROPHILS % 83.3 % (39.0-77.0); PLATELET COUNT 166 10^3/UL (140-415); RED BLOOD COUNT 4.38 10^6/ul (4.20-5.40); RED CELL DISTRIBUTION WIDTH 13.2 % (11.5-14.5); WHITE BLOOD COUNT 14.6 10^3/ul (4.8-10.8)
[2017-04-12 16:33] LABS: POSITIVE DIFF @See below
[2017-04-12] MEDS: LACTATED RINGER'S 1,000 ML IV SCH ×2 (16:49→21:07)
[2017-04-12 17:00] LABS: INR 0.98
[2017-04-12 17:01] LABS: PARTIAL THROMBOPLASTIN TIME 29.1 Sec (25.0-35.0)
[2017-04-12] MEDS ORDERED: AMPICILLIN 1 GM/NS (PMX) 50 ML IV SCH (19:00)
[2017-04-13] MEDS: LACTATED RINGER'S 1,000 ML IV SCH ×4 (04:46→21:57)
[2017-04-13] MEDS ORDERED: FENTAnyl 2MCG/ML-ROPIV 0.2% 100 ML ONE (16:08)
[2017-04-13] MEDS ORDERED: DIPHENHYDRAMINE 50 MG INJ IV PRN (16:30)
[2017-04-13] MEDS ORDERED: ONDANSETRON 4 MG INJ IV PRN (16:30)
[2017-04-13] MEDS ORDERED: NALOXONE (0.4 MG/ML) INJ IV PRN (16:30)
[2017-04-13] MEDS: FENTAnyl 2MCG/ML-ROPIV 0.2% 100 ML BAG EPI SCH (20:09)
[2017-04-13] MEDS ORDERED: OXYTOCIN 30 UNITS/LR 500 ML IV SCH (21:00)
[2017-04-14] MEDS: FENTAnyl 2MCG/ML-ROPIV 0.2% 100 ML BAG EPI SCH (00:26)
[2017-04-14] MEDS: LACTATED RINGER'S 1,000 ML IV SCH (00:29)
--- NOTE | 2017-04-14 04:06 | LDN ---
Date/Time of Note Date/Time of Note DATE: 04/14/17 TIME: 04:04 Delivery Summary April 14, 2017 Weeks of Gestation 38 weeks Placenta Delivered: Spontaneously Meconium: Thick Episiotomy: No Indication for episiotomy N/a Perineal laceration: 1 Laceration repair: First-degree perineal laceration repaired with 2-0 chromic 2 suture Anesthesia type: Epidural Sponge & Needle done & correct: Yes All needle counts correct: Yes Any foreign bodies felt in the: No Problems: Delivery Information Sex Sex: male Apgars 1 Minute: 8 5 Minute: 9 Suctioning Nose & mouth suctioned at silvio: Yes Delee suction performed: Yes Umbilical Cord Cord presentations: nuchal cord Nuchal cord present X: 1 Cord Blood was obtained: Yes CYN PIKE MD Apr 14, 2017 04:06
--- NOTE | 2017-04-14 04:10 | HP ---
Date/Time of Note Date/Time of Note DATE: 04/14/17 TIME: 04:07 OB - History Hx of Present Free Text/Dictation 04/14/2017 : 1 Para: 0 Spontaneous : 0 Therapeutic : 0 Care: None Other Concerns: 26 years old female with IUP at 38 weeks presented in labor. Past Family/Social History * Past Medical, Surgical, Family and Obstetric Histories reviewed from chart. Blood Type: O+ Rubella: immune RPR/VDRL: Negative GBS Status: Negative HBsAG: Negative OB Admission Exam Vital Signs Vital Signs Vital Signs Date Time Temp Pulse Resp B/P Pulse Ox O2 Delivery O2 Flow Rate FiO2 04/12/17 14:42 98.5 97 18 126/70 97 Room Air Physical Exam HEENT: WNL Lungs: Clear Abdomen: WNL Extremities: Edema Reflexes: Normal Cervical Dilatation: 3cm Effacement: 50% Station: -2 Membranes: Intact Heart Rate: 130's Accelerations: Accelerations Present Decelerations: No Decelerations Varibility: Moderate Contractions on Admission: 6-10 Minutes Apart Intensity: Moderate Last 72 hours Lab Results CBC & BMP 04/12/17 16:00 OB Assessment/Plan Reason for admission: active labor Other Assessment: IUP at 38 weeks Presented in labor GBS: Negative History of PTL ;.,s/p 2 doses of Betamethasone Prolonged labor CYN PIKE MD Apr 14, 2017 04:10
[2017-04-14] MEDS ORDERED: LACTATED RINGER'S 1,000 ML IV* SCH (04:11)
[2017-04-14 04:15] LABS: CBV Base Excess -6.5 mmol/L; CBV COHb 0.8 %; CBV Oxygen Sat 47.4 mmHG; Cord Blood Venous AADO2 73.7 mmHg; Cord Blood Venous pO2 23.5 mmHG (15.0-45.0); Fraction OxyHgb Cord Venous 46.4 %; MODE ROOM AIR; MetHgb Cord Venous 1.3 %; Sample Type CBV
[2017-04-14 04:16] LABS: AADO2 Cord Arterial 88.2 mmHg; Arterial Cord Blood pCO2 24.1 mmHG (25-50); CBA Base Excess -17.7 mmol/L; Cord Blood Arterial pO2 32.7 mmHG (15.0-45.0); MODE ROOM AIR; Sample Type CBA
[2017-04-14] MEDS ORDERED: MISOPROSTOL 200 MCG TAB PR PRN (04:30)
[2017-04-14] MEDS ORDERED: METHYLERGONOVINE 0.2 MG INJ IM PRN (04:30)
[2017-04-14] MEDS ORDERED: CARBOPROST 250 MCG INJ IM PRN (04:30)
[2017-04-14] MEDS ORDERED: LANOLIN 7 GM TUBE TOP PRN (04:30)
[2017-04-14] MEDS ORDERED: ZOLPIDEM 5 MG TAB PO PRN (04:30)
[2017-04-14] MEDS ORDERED: OXYTOCIN 30 UNITS/LR 500 ML IV PRN (04:30)
[2017-04-14] MEDS ORDERED: DIPHENHYDRAMINE 25 MG CAP PO PRN (04:30)
[2017-04-14] MEDS ORDERED: ONDANSETRON 4 MG INJ IV PRN (04:30)
[2017-04-14] MEDS ORDERED: ACETAMINOPHEN 325 MG TAB PO PRN (04:30)
[2017-04-14 06:10] VITALS: BP 114/68; PULSE 71; RESP 20
[2017-04-14] MEDS: WITCH HAZEL/GLYCERIN PAD PR PRN (06:37)
[2017-04-14] MEDS: IBUPROFEN 600 MG TAB PO SCH ×4 (07:40→23:44)
[2017-04-14 08:00] VITALS: BP 100/62; PULSE 84; RESP 18
[2017-04-14] MEDS: PRENATAL VITAMIN PO SCH (09:09)
[2017-04-14] MEDS: SENNA/DOCUSATE NA (8.6MG/50MG) TAB PO SCH ×2 (09:09→21:00)
[2017-04-14 09:43] LABS: BASOPHIL # 0.1 10^3/ul (0.0-0.1); BASOPHILS % 0.3 % (0.0-2.0); EOSINOPHILS % 0.1 % (0.0-7.0); HEMATOCRIT 35.5 % (37.0-47.0); HEMOGLOBIN 12.2 g/dl (12.0-16.0); LYMPHOCYTES # 1.4 10^3/ul (0.8-2.9); LYMPHOCYTES % 6.7 % (15.0-51.0); MEAN CORPUSCULAR HEMOGLOBIN 31.9 pg (29.0-33.0); MEAN CORPUSCULAR HGB CONC 34.4 g/dl (32.0-37.0); MEAN CORPUSCULAR VOLUME 92.7 fl (82.0-101.0); MEAN PLATELET VOLUME 12.8 fl (7.4-10.4); MONOCYTE # 1.4 10^3/ul (0.3-0.9); MONOCYTES % 6.6 % (0.0-11.0); NEUTROPHIL # 17.7 10^3/ul (1.6-7.5); NEUTROPHILS % 85.7 % (39.0-77.0); PLATELET COUNT 142 10^3/UL (140-415); RED BLOOD COUNT 3.83 10^6/ul (4.20-5.40); RED CELL DISTRIBUTION WIDTH 13.3 % (11.5-14.5); WHITE BLOOD COUNT 20.7 10^3/ul (4.8-10.8)
[2017-04-14 11:51] VITALS: BP 109/72; PULSE 80; RESP 18
[2017-04-14] MEDS ORDERED: INFLUENZA VIRUS VACCINE 0.5 ML (DISPENSING) IM* ONE (14:00)
[2017-04-14 16:00] VITALS: BP 97/60; PULSE 73; RESP 18
[2017-04-14 19:20] VITALS: BP 107/59; PULSE 75; RESP 19
[2017-04-15 04:00] VITALS: BP 100/61; PULSE 80; RESP 20
[2017-04-15] MEDS: IBUPROFEN 600 MG TAB PO SCH ×4 (05:32→23:26)
[2017-04-15 06:39] LABS: BASOPHIL # 0.1 10^3/ul (0.0-0.1); BASOPHILS % 0.3 % (0.0-2.0); EOSINOPHILS # 0.1 10^3/ul (0.0-0.5); EOSINOPHILS % 0.6 % (0.0-7.0); HEMATOCRIT 33.4 % (37.0-47.0); HEMOGLOBIN 11.5 g/dl (12.0-16.0); LYMPHOCYTES # 2.8 10^3/ul (0.8-2.9); LYMPHOCYTES % 14.8 % (15.0-51.0); MEAN CORPUSCULAR HEMOGLOBIN 31.8 pg (29.0-33.0); MEAN CORPUSCULAR HGB CONC 34.4 g/dl (32.0-37.0); MEAN CORPUSCULAR VOLUME 92.3 fl (82.0-101.0); MEAN PLATELET VOLUME 12.6 fl (7.4-10.4); MONOCYTE # 1.2 10^3/ul (0.3-0.9); MONOCYTES % 6.3 % (0.0-11.0); NEUTROPHIL # 14.5 10^3/ul (1.6-7.5); NEUTROPHILS % 77.4 % (39.0-77.0); PLATELET COUNT 125 10^3/UL (140-415); RED BLOOD COUNT 3.62 10^6/ul (4.20-5.40); RED CELL DISTRIBUTION WIDTH 13.2 % (11.5-14.5); WHITE BLOOD COUNT 18.7 10^3/ul (4.8-10.8)
[2017-04-15 08:00] VITALS: BP 101/64; PULSE 65; RESP 18
--- NOTE | 2017-04-15 08:54 | QN ---
Documentation Comment PPD#1is stable afebrile tolerates diet No VB +BM +Voids VS stable Gen NAD Abd soft,NT ND Genitalia No blood at perinium --->discharge plan tomorrow MARCELLUS RUIZ M.D. Apr 15, 2017 08:54
[2017-04-15] MEDS: SENNA/DOCUSATE NA (8.6MG/50MG) TAB PO SCH ×2 (09:00→21:00)
[2017-04-15] MEDS: PRENATAL VITAMIN PO SCH (09:48)
[2017-04-15 15:40] VITALS: BP 116/71; PULSE 74; RESP 18
[2017-04-15] MEDS ORDERED: INFLUENZA VIRUS VACCINE 0.5 ML (DISPENSING) IM* ONE (16:00)
[2017-04-15 20:00] VITALS: BP 108/69; PULSE 69; RESP 18
[2017-04-16 04:00] VITALS: BP 96/68; PULSE 60; RESP 17
[2017-04-16] MEDS: IBUPROFEN 600 MG TAB PO SCH ×2 (05:10→11:52)
[2017-04-16 07:30] VITALS: BP 107/65; PULSE 62; RESP 18
[2017-04-16] MEDS: SENNA/DOCUSATE NA (8.6MG/50MG) TAB PO SCH (08:38)
[2017-04-16] MEDS: PRENATAL VITAMIN PO SCH (08:39)
[2017-04-16] MEDS ORDERED: VARICELLA VACCINE LIVE/PF 1,350 UNIT/0.5 ML ML SC* ONE (09:00)
[2017-04-16] MEDS ORDERED: MEASLES,MUMPS,RUBELLA VACCINE INJ SC* ONE (09:00)
[2017-04-16] MEDS ORDERED: DIPHTH/TET/ACEL PERTUSS (ADULT) 0.5 ML VIAL IM* ONE (09:00)
--- NOTE | 2017-04-16 11:34 | DS ---
Date/Time of Note Date/Time of Note DATE: 04/16/17 TIME: 11:32 Obstetrical Discharge Record Final Diagnosis Final Diagnosis: Term delivered Vaginal Delivery Obstetrical Delivery: Spontaneous, Laceration, Repaired Condition on Discharge Physical Assessment Voiding: Yes Breast: Soft, non-tender, Filling Fundus: Firm Calf Tenderness: No Patient Condition: Good JES ZAVALA Apr 16, 2017 11:34
[2017-04-16] MEDS: WITCH HAZEL/GLYCERIN PAD PR PRN (14:48)
== END 2017-04-16 17:10 | disposition home or self-care (01) | DRG 775 ==
LOC: L-D 14:22 → OBT 14:22 → L-D 14:50 → OBT 14:50 → L-D 22:38 → PP1 04-14 06:13
PROVIDERS: ADMIT Obstetrics & Gynecology; ATTEND Obstetrics & Gynecology
PROC: 10E0XZZ Delivery of Products of Conception, External Approach (ICD-10-PCS; principal; 2017-04-14)
PROC: 0HQ9XZZ Repair Perineum Skin, External Approach (ICD-10-PCS; 2017-04-14)
PROC: 4A033R1 Measurement of Arterial Saturation, Peripheral, Percutaneous Approach (ICD-10-PCS; 2017-04-14)
PROC: 3E0234Z Introduction of Serum, Toxoid and Vaccine into Muscle, Percutaneous Approach (ICD-10-PCS; 2017-04-16)
DX: O70.0 First degree perineal laceration during delivery (principal); Z23 Encounter for immunization; Z37.0 Single live birth; Z3A.38 38 weeks gestation of pregnancy
CPT/HCPCS: 36415; 36600; 62319; 82803; 85014; 85018; 85025; 85610; 85730; 86592; 86900; 86901; 87340; 90686; 90715; 90716; 99464; G0463; J0595; J2590; J3010; J7120